=== PATIENT | female | born 1925 | race Caucasian/White ===

== ENCOUNTER 2016-09-11 20:12 | Inpatient (IN) | payer MEDICARE ==
--- NOTE | ~2016-09-11 | IDS ---
Interim Discharge Summary [facility] [address] [place]. [address] NAME: SENTHIL YEE : [birth year] STATUS : ADM IN [facility]#: [id number] AGE: 89 ADM/REG DATE : 09/12/16 MR#: [id number] REPORT SERV DATE: 09/20/16 DICTATED BY: AUGUSTINE FIELD DATE: 09/19/16 REPORT STATUS : Draft TRANSCRIBED BY: MODOsman DATE: 09/19/16 ADMISSION DATE: 09/12/2016 DISCHARGE DATE: Date of transfer to my colleague is 09/20/2016. CONSULTANTS: Consults on this patient so far is: 1. Blender Conveyor Operator, Pelon Hobson has seen this patient. 2. Cardiology consultation by Dr. Rose. DIAGNOSES: So far in this patient include: 1. Acute hypoxic-hypercapnic respiratory failure secondary to multifactorial. 2. Chronic obstructive pulmonary disease. 3. Severe advanced pulmonary hypertension. 4. Healthcare-associated pneumonia (HCAP). The patient has received several days of IV antibiotics and now she is only on Levaquin. Further antibiotics are probably not going to be of any use in this patient as her procalcitonin is normal, white blood cell count is normal, she is afebrile, and her respiratory failure is for other reasons which are multifactorial. 1. Chronic hypoxic-hypercapnic respiratory failure going on for several months, probably secondary to COPD and advanced pulmonary hypertension. 2. Cor pulmonale. 3. The patient's code status is a DNR. 4. The patient is mildly confused and her next of kin who is her sister, Maddy, is deciding whether to transfer the patient to hospice care or not, they are still debating, but Palliative Care is going to be seeing the patient today, 09/19/2016. BRIEF HOSPITAL COURSE: Ms Yee is an 89-year-old white female patient with a history of COPD, severe pulmonary hypertension, and chronic hypoxic respiratory failure on 2 liters of oxygen at home who came in with increasing shortness of breath, cough, and extreme weakness. She was diagnosed with healthcare-associated pneumonia and started on broad-spectrum IV antibiotics appropriately. Her respiratory status, however, did not improve despite her being on antibiotics for several days. Her procalcitonin was normal, WBC count was normal, and she was afebrile, and hence, antibiotics were downgraded per Pulmonary, which I agreed. She is continuing to be on Levaquin now. Her problem however is along with the severe pulmonary hypertension, the patient also has cor pulmonale. She has been given diuretics off and on, but she cannot tolerate a whole lot of diuretics either because of her blood pressure. She is somewhat hypotensive with systolic blood pressure in the 100s to 110s. So, we have been diuresing her off and on as tolerated. She is on oxygen via Vapotherm and then it was changed to non-rebreather mask, but Pulmonary is handling this. She is on high- flow oxygen right now and requiring high amounts of oxygen. She is mildly confused also because her most recent ABG also showed hypercapnia. But other than the cardiac and respiratory problems which are advanced in this patient, her mind seems to be quite sharp even now and she has no other comorbidities. However, it is her strong wish that she is a DNR and definitely does not want to go on life support or does not want to be intubated. Interim Discharge Summary [address] [address] NAME: SENTHIL YEE : [birth year] STATUS : ADM IN PAT#: [id number] AGE: 89 ADM/REG DATE : 09/12/16 MR#: [id number] REPORT SERV DATE: 09/20/16 DICTATED BY: AUGUSTINE FIELD DATE: 09/19/16 REPORT STATUS : Draft TRANSCRIBED BY: MODOsman DATE: 09/19/16 After reviewing all treatment options, both Pulmonary and Cardiology agreed that there are no other treatment options available in this 89-year-old lady. Hence, she was told that she could be kept comfortable and we brought up the issue of hospice with her. She is still debating on that and then upon talking to the next of kin who is her closest, who is her sister, Maddy, family somehow seem to have come to a consensus saying that they do want hospice right now. Again, there has been back and forth debate regarding this, and hence, I have had Palliative Care, Dr. Bhatt, involved and see this patient. Hopefully, the patient would have been seen on 09/19/2016 by Palliative Care, so we can transfer her to [facility]. This should happen within the next one to two days as the patient is going downhill slowly and steadily. She continues to be in hypercapnic respiratory failure and her mental status continues to be foggy/confused. The patient, however, declines any Ativan at this time, and hence, she has not been given any Ativan as of now because it makes her even more confused according to patient. So far, I continue to follow this patient along with Pulmonology and I have not seen Dr. Bhatt's note yet and this should happen tomorrow and the patient should be able to be transferred to hospice care within the next one to two days. RRA/MODL Augustine Field M.D. / [id number] CC: Alysia Brennan M.D.
--- NOTE | ~2016-09-11 | DS ---
Discharge Summary [facility] [address] [facility] [place]. [address] NAME: SENTHIL GRAY : [birth year] STATUS : DIS IN PAT#: [id number] AGE: 89 ADM/REG DATE : 09/12/16 MR#: [id number] REPORT SERV DATE: 09/22/16 DICTATED BY: LAVERN MCCORMICK DATE: 09/21/16 REPORT STATUS : Draft TRANSCRIBED BY: MODL DATE: 09/21/16 ADMISSION DATE: 09/12/2016 DISCHARGE DATE: 09/21/2016 CONSULTANTS: ZAKIA Ugalde with Pulmonary; Dr. Tate Benavides; Dr. Misha Rose, Cardiology. DISCHARGE DIAGNOSES: 1. Cor pulmonale. 2. Severe bronchiectasis. 3. Eoceg-vn-vmwrplv hypercapnic hypoxic respiratory failure. 4. Chronic atrial flutter. 5. Volume overload. 6. Chronic mild thrombocytopenia. 7. Failure to thrive. HISTORY: This patient is followed by stunt man, Dr. Miller and has a history of severe bronchiectasis with previous multiple pneumonias and has a history of cor pulmonale. She wears oxygen 2 L nasal cannula. She has never been a smoker. She presented to the emergency room at [facility] with about a week of cough and greenish-colored sputum and worsening of her baseline shortness of breath as well as dyspnea on exertion, generalized weakness, anorexia. In the emergency room, her O2 saturation was 89% on 3 L, respiratory rate was 24, blood pressure 93/49. She reportedly has lost about 30 pounds in the last few months. She is having difficulty walking. She was referred to our team for inpatient care. Imaging included a chest x-ray showing enlarged cardiac silhouette, pleural thickening, blunting of the right costophrenic angle, some increased interstitial prominence. Followup chest x-ray on the next day showed continued diffuse mixed interstitial and patchy alveolar infiltrates or edema, right upper lobe, a bit worse. Followup chest x-ray on 09/16/2016, slight interval improvement. Chest x-ray on 09/17/2016 revealed unfortunately worsening bilateral asymmetrical pulmonary infiltrates. Echocardiogram review from 12/28/2015 showed left atrial enlargement, 3.9 cm; left ventricular ejection fraction 60%; moderate LVH; moderate right ventricular enlargement with a D shape to the right ventricle. She also had moderate right ventricular systolic dysfunction, pulmonary hypertension of 67. During this hospitalization, she was seen by Pulmonary, Dr. Benavides and his PA Asim Hobson. The patient indicated she did not wish any aggressive measures. She was given increased oxygen. Cardiology, Dr. Rose saw the patient, indicated that they had no inotropic therapy to help at this point in time and since her heart failure was right sided and due to pulmonary disease, there was not much intervention that they could offer. The patient's code status is now DNR. This is per the patient's own wishes as well as through her sister, who has been at bedside. Palliative Care has met with the patient and family, and they have decided on hospice. [facility] has met with the patient and family. The sister is going to move in with the patient and actually the sister's son and his will move in to do the primary care along with hospice at home. They do Discharge Summary [address] [address] NAME: SENTHIL GRAY : [birth year] STATUS : DIS IN PAT#: [id number] AGE: 89 ADM/REG DATE : 09/12/16 MR#: [id number] REPORT SERV DATE: 09/22/16 DICTATED BY: LAVERN MCCORMICK DATE: 09/21/16 REPORT STATUS : Draft TRANSCRIBED BY: JEANIE DATE: 09/21/16 realize that her prognosis is extremely poor. Initially, she was started on broad-spectrum antibiotics, but the ER had given her Rocephin and Zithromax. These were stopped and cefepime was started. The patient was given some IV steroids. Eventually, antibiotics, cefepime and vancomycin, were stopped and Levaquin was given orally. The patient was tapered off IV steroids. The patient's procalcitonins were 0.06 and 0.05. The patient's white blood count on presentation to the hospital was normal. It only went up to 10.7 on 09/16/2016, that is the highest it has been. Urine Legionella and strep antigens were negative. Blood cultures x2 negative. Sputum culture revealed normal naman. DISCHARGE MEDICATIONS: Will include Ecotrin 325 mg daily, Bumex 1 mg b.i.d., BuSpar 5 mg b.i.d., Humibid 1200 mg twice a day OTC, KCl 20 mEq daily, metoprolol tartrate 12.5 mg twice a day if pulse less than 60 or systolic less than 100, Pravachol 40 mg daily at evening, Calan SR 180 mg twice a day if pulse less than 60 or systolic less than 110, Brovana 15 mcg inhaled twice a day, Pulmicort 0.5 mg inhale twice a day, DuoNeb q.4 hours p.r.n. shortness of breath, Tylenol 650 q.4 hours p.r.n. pain, vitamin B12 1000 mcg IM every 30 days. Hospice is setting up for oxygen, hospital bed, and all other equipment. I spent 32 minutes today with the patient and with her sister and with discharge planning. ОЛЕГ/JEANIE Lavern Mccormick M.D. / [id number] CC: Alysia Alvarez M.D. [facility] Alysia Pierre Jr., M.D.
--- NOTE | ~2016-09-11 | CN ---
Consultation Report [facility] [address] [place]. [address] NAME: SENTHIL YEE : [birth year] STATUS : ADM IN [facility]#: [id number] AGE: 89 ADM/REG DATE : 09/12/16 MR#: [id number] REPORT SERV DATE: 09/16/16 DICTATED BY: SHRUTHI ROSE DATE: 09/16/16 REPORT STATUS : Draft TRANSCRIBED BY: MODL DATE: 09/16/16 CARDIOLOGY CONSULTATION NOTE DATE OF CONSULTATION: 09/16/2016 REASON FOR CONSULTATION: Recommendations for management of cor pulmonale and atrial flutter. HISTORY OF PRESENT ILLNESS: Ms. Yee is a pleasant 89-year-old woman with history of advanced COPD and bronchiectasis, which is oxygen-dependent. The patient also has a history of chronic atrial flutter. She is seen by Dr. Eduardo Mclean in Cardiology Clinic. The patient was most recently seen in clinic on 06/14/2016. The patient was admitted to [facility] on 09/12/2016. The patient's chief complaint was progressive shortness of breath and cough of two to three days duration. The patient was found to have evidence of right-sided pneumonia. She has been started on broad-spectrum antibiotic therapy and therapy for COPD exacerbation. The patient's procalcitonin level is normal, however. Today, the patient reports that she feels unusually fatigued. She attributes this to a medication that she was given earlier, though she is not sure what this might have been. However, at this time, she denies any unusual shortness of breath (the patient is on continuous flow nasal cannula oxygen). She denies any unusual chest pain, palpitations, or dizziness. The patient denies orthopnea or paroxysmal nocturnal dyspnea. PAST MEDICAL HISTORY: 1. Advanced COPD and bronchiectasis. 2. Cor pulmonale and group 3 pulmonary hypertension. 3. Failure to thrive. 4. Hypertension. 5. Dyslipidemia. 6. Chronic atrial flutter. PAST SURGICAL HISTORY: 1. The patient has had an abdominal hysterectomy and bilateral salpingo-oophorectomy. 2. Knee surgery, not otherwise specified. 3. 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 FAMILY HISTORY: Negative for early coronary heart disease or sudden cardiac . SOCIAL HISTORY: The patient's only other family member is a 92-year-old sister. The patient has no significant history of tobacco, alcohol, or drug use. ALLERGIES: THE PATIENT HAS A DOCUMENTED ALLERGY TO CODEINE. HOME MEDICATIONS: Consultation Report [address] [place]. [address] NAME: SENTHIL YEE : [birth year] STATUS : ADM IN PAT#: [id number] AGE: 89 ADM/REG DATE : 09/12/16 MR#: [id number] REPORT SERV DATE: 09/16/16 DICTATED BY: SHRUTHI ROSE DATE: 09/16/16 REPORT STATUS : Draft TRANSCRIBED BY: JEANIE DATE: 09/16/16 1. Albuterol nebulizers twice daily as needed. 2. Aspirin 325 mg p.o. daily. 3. Bumex 1 mg p.o. twice daily. 4. BuSpar 5 mg p.o. q.h.s. 5. Vitamin B12 1000 mcg intramuscularly monthly. 6. Boniva 150 mg p.o. monthly. 7. Metoprolol tartrate 12.5 mg p.o. twice daily. 8. Potassium chloride 20 mEq p.o. daily. 9. Pravastatin 40 mg p.o. q.h.s. 10.Tylenol 650 mg p.o. twice daily as needed for pain. 11.Verapamil SR 180 mg p.o. twice daily. REVIEW OF SYSTEMS: A complete 10-system review was performed. This is noncontributory, except for the pertinent positives and negatives noted in the history of present illness above. PHYSICAL EXAMINATION: VITAL SIGNS: Temperature is 97.6 degrees Fahrenheit, blood pressure is 102/70 mmHg, heart rate is currently 86 beats per minute and regular, respirations 18, and oxygen saturation is 92% on nasal cannula oxygen. CONSTITUTIONAL: The patient is a frail elderly white woman, who is fatigued at this time, but is in no acute respiratory distress. The patient is able to speak in full sentences. EYES: PERRL, EOMI, clear conjunctiva. HEAD/MNT: NCAT with moist mucous membranes and grossly normal hard and soft palate. NECK: Supple with no obvious thyromegaly or lymphadenopathy. CARDIOVASCULAR: There is an irregular rhythm with a normal S1 and a widely split second heart sound with a prominent P2 component. There is a faint regurgitant murmur noted at the left sternal border. The jugular venous pressure appears to be at the upper limit of normal at 8 cm. No rubs or gallops are noted. PULMONARY: There is globally decreased air movement with a pronounced expiratory wheeze. Dry rales are noted throughout the lung angel anteriorly. ABDOMINAL: Soft, nontender, nondistended with no hepatosplenomegaly noted. EXTREMITIES: There is no significant clubbing, cyanosis, or edema noted at this time. MUSCULOSKELETAL: Grossly normal strength and range of motion in all extremities. INTEGUMENTARY: Skin appears intact with no bruises, wounds or active lesions noted. NEURO/PSYC: Alert and oriented x3, with no dysarthria, facial droop or lateralizing weakness noted. IMAGIN-lead EKG: The patient's most recent 12-lead EKG from Dr. Mclean's office shows atrial flutter with a controlled ventricular response. There is a right bundle-branch block pattern with criteria for right ventricular hypertrophy. There are secondary ST/T-wave abnormalities. Echocardiogram dated 12/28/2015: Normal left ventricular size and normal left ventricular systolic function with left ventricular ejection fraction estimated at 60%. There is Consultation Report [place] [id number] [facility] [place]. [address] NAME: SENTHIL YEE : [birth year] STATUS : ADM IN [facility]#: [id number] AGE: 89 ADM/REG DATE : 09/12/16 MR#: [id number] REPORT SERV DATE: 09/16/16 DICTATED BY: SHRUTHI ROSE DATE: 09/16/16 REPORT STATUS : Draft TRANSCRIBED BY: JEANIE DATE: 09/16/16 moderate concentric left ventricular hypertrophy. There is moderate right ventricular dilation and decreased right ventricular systolic function. There is a D-shaped septum noted and severe right atrial enlargement. There is severe pulmonary hypertension with right ventricular systolic pressure estimated at 67 mmHg. There is mild mitral regurgitation noted and mhho-go-vuzjfewz tricuspid regurgitation noted. LABORATORY: Blood cultures are negative x2. B-type natriuretic peptide is elevated at 1881. ABG shows a pH of 7.37, pCO2 of 68, pO2 of 65 on 60% FiO2. Cell count show a white blood cell count of 8.9, hemoglobin 11, hematocrit 38, platelets 123. Electrolytes show a sodium of 139, potassium 4.7, chloride is 99, CO2 is 36, BUN 47, creatinine is 1.07, calcium 8.8, glucose 79, magnesium 2.2, phosphorus 3.3. Chest x-ray: Chest x-ray shows mixed interstitial and alveolar infiltrates throughout both lungs. There are stable small bilateral pleural effusions. The cardiomediastinal silhouette is slightly enlarged, but stable. There is extensive calcification of the thoracic aorta. ASSESSMENT AND PLAN: 1. Cor pulmonale: Unfortunately, I am aware of no evidence to support the use of inotropic therapy for the treatment of cor pulmonale. The patient is on an appropriate medication regimen, which includes metoprolol and verapamil. Verapamil may be the most reasonable agent, as theoretically this may help to decrease pulmonary vascular resistance. However, unfortunately, the patient's right-sided heart failure and pulmonary hypertension are secondary to advanced pulmonary disease. The Pulmonology Service is following the patient and is apparently optimized her therapy to the greatest extent possible. The medium term prognosis is poor. Diuretics may be given to treat symptoms of volume overload and edema, though the patient appears to be fairly well compensated at this time with no significant lower extremity edema. 2. Atrial flutter: The patient's heart rate is well controlled at this time. Again, the patient is on a fairly appropriate medication regimen for treatment of her atrial flutter. Chronic oral anticoagulation could be considered, as this may also reduce the likelihood of pulmonary embolism, which would be particularly catastrophic in this patient with severe pulmonary hypertension and advanced pulmonary disease. However, it is apparently felt that the patient is at high fall risk. I will defer to Dr. Mclean on this issue. 3. End-of-life care: The patient apparently has refused hospice care. She is, however, DNR status. The patient apparently is not in favor of any overly aggressive or invasive management. I feel this is quite reasonable under the circumstances. 4. The Cardiology Service will continue to follow the patient for now. Again, I do not feel there is a role for inotropic therapy in this case, though this could be considered on an experimental basis if the Pulmonology Service feels that this would be useful. Consultation Report [place] [id number] [place]. [address] NAME: EVANGELINA YEEJULIANNE Wang : [birth year] STATUS : ADM IN [facility]#: [id number] AGE: 89 ADM/REG DATE : 09/12/16 MR#: [id number] REPORT SERV DATE: 09/16/16 DICTATED BY: SHRUTHI ROSE DATE: 09/16/16 REPORT STATUS : Draft TRANSCRIBED BY: JEANIE DATE: 09/16/16 [facility]/JEANIE Shruthi Rose MD / [id number] CC: Alysia Brennan M.D.
--- NOTE | ~2016-09-11 | CN ---
Consultation Report [facility] [address] [place]. [address] NAME: CATRINA YEE : [birth year] STATUS : ADM IN PAT#: [id number] AGE: 89 ADM/REG DATE : 09/12/16 MR#: [id number] REPORT SERV DATE: 09/14/16 DICTATED BY: ASIM NAGEL DATE: 09/14/16 REPORT STATUS : Draft TRANSCRIBED BY: MODL DATE: 09/14/16 CONSULTATION REPORT DATE OF CONSULTATION: 09/14/2016 CHIEF COMPLAINT: Shortness of breath in a patient with worsening hypoxemia. HISTORY OF PRESENT ILLNESS: Ms Catrina Yee is an 89-year-old white female with a past medical history significant for COPD, bronchiectasis, previous bilateral pleural effusions, MRSA pneumonia, and cor pulmonale who presents to [facility] with complaints of worsening shortness of breath and cough of two to three days' duration. It should be noted that Ms Yee has not been hospitalized this year. She has done fairly well as an outpatient given her advanced age and significant pulmonary comorbidities. Ms Yee has been seen previously in the outpatient clinic by Dr. Barrett. She is on continuous supplemental oxygen at 2 liters. She is on a pulmonary regimen of albuterol. The patient describes herself as a never smoker. She denies symptomatology consistent with obstructive sleep apnea. She has difficulty quantifying her exercise tolerance today as she has recently been ambulating primarily with a walker. Ms Yee did have worsening shortness of breath and associated cough approximately a week ago. These symptoms got progressively worse and culminated in her presentation to [facility]'s Emergency Room. Upon arrival, she was found to be mildly hypotensive. She had an oxygen saturation of 89% on 3 liters. Initial blood work revealed a white blood cell count of 7600. Her BNP was elevated at 765. Procalcitonin was negative. She did have a chest imaging, which suggested a right upper lobe pneumonia. She was started on Rocephin and azithromycin. These antibiotics were later changed to cefepime and vancomycin. She received breathing treatments and steroids with some transient improvement in her pulmonary status. Earlier today, she has had increasing oxygen requirements. This has been to such a degree, she has recently been placed on a non-rebreather. Pulmonary has been consulted for the aforementioned reasons. Currently, Ms Yee is on a non-rebreather with oxygen saturations in the low 90s. She is exhibiting some increased work of breathing. She does have a cough, which is productive in nature. She denies any overt wheezing. She has had a history of bronchiectasis as well as positive in MRSA in her sputum. The patient currently denies any murmurs or angina. She has had an accelerated heart rate and atrial flutter demonstrated on recent echocardiogram. She denies any lower extremity edema. In regard to constitutional symptoms, she currently denies nausea, vomiting, chest pain, abdominal pain, or edema. PAST MEDICAL HISTORY: 1. COPD, on chronic oxygen. Consultation Report [address] [address] NAME: CATRINA YEE : [birth year] STATUS : ADM IN [facility]#: [id number] AGE: 89 ADM/REG DATE : 09/12/16 MR#: [id number] REPORT SERV DATE: 09/14/16 DICTATED BY: ASIM NAGEL DATE: 09/14/16 REPORT STATUS : Draft TRANSCRIBED BY: JEANIE DATE: 09/14/16 2. Bronchiectasis. 3. Severe pulmonary hypertension. 4. Weight loss. 5. Paroxysmal atrial fibrillation. 6. Dyslipidemia. 7. Hypertension. PAST SURGICAL HISTORY: 1. Abdominal hysterectomy with bilateral salpingo-oophorectomy. 2. Knee surgery. 3. History of tumor excision from the chest. FAMILY HISTORY: The patient denies family history of lung disease. SOCIAL HISTORY: The patient states that she does not have any family other than her 92-year- old sister who is actually her [id number]. She previously worked in an office environment. She denies any known exposures to dust, silica, or asbestos. TOBACCO/ALCOHOL: As previously mentioned, she describes herself as a never smoker. She denies any recent illicit drug or alcohol use. MEDICATIONS: 1. Albuterol. 2. Aspirin 325 mg. 3. Bumex 1 mg. 4. BuSpar 5 mg. 5. Boniva 150 mg. 6. Metoprolol 25 mg. 7. Potassium chloride 20 mEq. 8. Pravastatin 40 mg. 9. Verapamil 180 mg. ALLERGIES: THE PATIENT HAS KNOWN ALLERGY TO CODEINE. REVIEW OF SYSTEMS: A complete review of systems was performed with pertinent positives and negatives contained within the body of the HPI. PHYSICAL EXAMINATION: VITAL SIGNS: Blood pressure is 119/67, heart rate is 90, T-max 97.5, respiratory rate is 17, and SpO2 is 92% on a non-rebreather. GENERAL: The patient is a pleasant, well-nourished/well-developed female who is not currently exhibiting any signs of acute distress. Skin: Skin with appropriate texture and turgor. No rashes, lesions, or ulcers. Nails are clear without cyanosis or clubbing. Consultation Report [place] [id number] [facility] [place]. [address] NAME: CATRINA YEE : [birth year] STATUS : ADM IN [facility]#: [id number] AGE: 89 ADM/REG DATE : 09/12/16 MR#: [id number] REPORT SERV DATE: 09/14/16 DICTATED BY: ASIM NAGEL DATE: 09/14/16 REPORT STATUS : Draft TRANSCRIBED BY: JEANIE DATE: 09/14/16 HEENT: Head: Skull is normocephalic/atraumatic. Facies symmetric. No masses or lesions. Eyes: Sclera anicteric, conjunctiva pink without exudates. Extra ocular movements intact. Pupils are equal, round, reactive to light. Ears: Auricles and tragus without pain to palpation. Hearing is grossly intact. Nose: Bilateral nasal patency. Sinuses without tenderness upon palpation. Throat: Dentition. Lips, oral mucosa, tongue, palate, and pharynx pink and moist without lesions. Uvula rises equally on phonation. Tongue midline without deviation. NECK: Neck supple. Trachea midline. No cervical lymphadenopathy appreciated. THORAX/LUNGS: There are coarse rhonchi appreciated through entire lung angel. CARDIOVASCULAR: Regular rate and rhythm. No murmurs, rubs, or gallops. Anterior chest without thrills, heaves, or lifts. ABDOMEN: Soft. Non-distended, non-tender. Active bowel sounds in all four quadrants. No hepatosplenomegaly noted. PERIPHERAL VASCULAR: No edema. No varicosities, stasis changes, open sores, ulcerations, or phlebitis. 2+ pulses in radial and dorsalis pedis. MUSCULOSKELETAL: Full AROM and PROM in all joints. No evidence of erythema, deformity, or crepitus. NEUROLOGIC: CN II - XII grossly intact. Good muscle bulk and tone bilaterally. Strength 5/5 throughout. PSYCHIATRIC: Patient demonstrates good judgment and insight. Pt is A&O x 3. ACCESSORY DATA: Reveals a white blood cell count of 6900, hemoglobin and hematocrit 11.1/37.0. Procalcitonin is negative at 0.05. Creatinine 0.83. Arterial blood gas reveals a pH of 7.32, PaCO2 of 63, PaO2 of 62, and a bicarb of 31.9 on a non-rebreather. BNP reveals a value of 765.9. Imaging reveals worsening pulmonary edema-type pattern, superimposed on chronic changes. Echocardiogram reveals a normal LV size and systolic function, estimated right ventricular systolic pressure of 67 mmHg. IMPRESSION: 1. Acute on chronic hypoxemic-hypercapnic respiratory failure. 2. Cor pulmonale with volume overload. 3. Pulmonary edema. 4. Bilateral pleural effusions, left greater than right. 5. Healthcare-associated pneumonia. 6. Bronchiectasis. 7. Chronic obstructive pulmonary disease. 8. Weight loss. 9. DO NOT RESUSCITATE status. PLAN: 1. At this time, we did have a discussion with the patient who does not wish any aggressive resuscitative measures. We will reflect this within the chart. We will trial her on a BiPAP for both her hypoxemia and hypercapnia. We will transfer her to the next available IMCU bed. 2. In regard to the patient's cor pulmonale, she is at least 5 liters positive at this Consultation Report [address] [address] NAME: CATRINA YEE : [birth year] STATUS : ADM IN [facility]#: [id number] AGE: 89 ADM/REG DATE : 09/12/16 MR#: [id number] REPORT SERV DATE: 09/14/16 DICTATED BY: ASIM NAGEL DATE: 09/14/16 REPORT STATUS : Draft TRANSCRIBED BY: JEANIE DATE: 09/14/16 time. We would recommend placing a Hamilton with aggressive diuretics. We will certainly watch her renal function and close attention to her blood pressure as well. 3. In regard to the patient's HCAP pneumonia and underlying bronchiectasis, we will increase her antibiotics at this time. 4. In regard to the patient's COPD, we will place her on steroids as well as a full armamentarium and nebulized medications. The aforementioned impression and plan has been discussed with Dr. Benavides, who will follow further recommendations. We thank you for this consult and look forward to participating in the care of Ms Catrina Yee. GBS/MODL Asim Nagel PA-C / [id number] CC: Alysia Brennan M.D.
--- NOTE | ~2016-09-11 | HP ---
History And Physical [place] [address] [place]. [address] NAME: SENTHIL YEE : [birth year] STATUS : ADM IN [facility]#: [id number] AGE: 89 ADM/REG DATE : 09/12/16 MR#: [id number] REPORT SERV DATE: 09/12/16 DICTATED BY: JERILYN URIBE DATE: 09/12/16 REPORT STATUS : Draft TRANSCRIBED BY: MODOsman DATE: 09/12/16 DATE OF ADMISSION: 09/12/2016 POINT OF ENTRY: [facility] Emergency Department. PRIMARY AUTOMOTIVE GLASS TECHNICIAN: Elin Barrett M.D. PRIMARY CITY ALDERMAN: Eduardo Mclean M.D. CHIEF COMPLAINT: Shortness of breath, cough, weakness. HISTORY OF PRESENT ILLNESS: Ms Yee is an 89-year-old female with a history of COPD on 2 L of chronic nasal cannula as well as bronchiectasis, severe pulmonary hypertension with resulting right-sided heart failure, who presents to the emergency department today with approximately a week history of cough with white-greenish colored sputum production, worsening shortness of breath, and dyspnea on exertion as well as other chronic complaints such as weakness, weight loss, and lack of appetite. The patient states that for the past week she has had a worsening cough with sputum production as well as worsening shortness of breath and dyspnea on exertion. She denies any fevers, night sweats, chills, chest pain, palpitations, does report some chest congestion as well as wheezing. The patient also reports some more chronic complaints including significant weight loss over the past few months, as well as a lack of appetite and oral intake as well as profound weakness to the point where she is having difficulty walking unassisted at home. The patient states that foods just does not taste like it used to anymore and she readily admits to eating until she becomes full. However, family at bedside reports that the amount that she is eating is very minimal. The patient denies any dysphagia, abdominal pain, nausea, or vomiting as reasons for why she was not eating as much as family would like her to. They state she has approximately 20 to 30 pounds weight loss over the past few months. Her weakness has gradually progressed now to the point where she is having difficulty walking unassisted, it is now worse over the past week with her shortness of breath. Initial evaluation in the emergency department for a chest x-ray concerning for right upper and lower lobe infiltrates, she was mildly hypoxemic on 2 L nasal cannula requiring placement on 4 L. Remainder of her labs were unremarkable except for a BNP level of 766. She was subsequently admitted to the Hospitalist Service for further evaluation and management. REVIEW OF SYSTEMS: Comprehensive review of systems otherwise negative unless listed in history of present illness. PAST MEDICAL HISTORY: 1. COPD on 2 L by nasal cannula. History And Physical [address] [address] NAME: SENTHIL YEE : [birth year] STATUS : ADM IN [facility]#: [id number] AGE: 89 ADM/REG DATE : 09/12/16 MR#: [id number] REPORT SERV DATE: 09/12/16 DICTATED BY: JERILYN URIBE DATE: 09/12/16 REPORT STATUS : Draft TRANSCRIBED BY: JEANIE DATE: 09/12/16 2. Bronchiectasis. 3. Severe pulmonary hypertension with right-sided heart failure. 4. Paroxysmal atrial fibrillation, not on anticoagulation. 5. Anxiety. 6. Hypertension. 7. Hyperlipidemia. PAST SURGICAL HISTORY: 1. Abdominal hysterectomy with bilateral salpingo-oophorectomy. 2. Knee surgery. ALLERGIES: TO CODEINE. HOME MEDICATIONS: 1. Albuterol one nebulization b.i.d. 2. Ecotrin 325 mg daily. 3. Bumex 1 mg b.i.d. 4. BuSpar 5 mg q.h.s. 5. Vitamin B12 1000 mcg monthly. 6. Boniva 150 mg monthly. 7. Lopressor 12.5 mg b.i.d. 8. Potassium chloride 20 mEq daily. 9. Pravastatin 40 mg daily. 10.Tylenol two tablets b.i.d. 11.Verapamil 180 mg b.i.d. SOCIAL HISTORY: Denies any tobacco, alcohol, or illicits. FAMILY MEDICAL HISTORY: Significant for hypertension in her mother, hypertension in her father, siblings with history of hypertension as well as a brain aneurysm. LAB/IMAGIN. White count is 7.6, hemoglobin is 12.8, hematocrit is 40.6, platelet count is 158, and INR 1.1. 2. Sodium is 143, potassium 4.2, chloride 103, carbon dioxide 33, BUN 37, creatinine 0.83, glucose is 98, calcium is 8.9, and magnesium is 2.2. 3. Troponin is 0.04. BNP is 766. 4. Lactic acid is 1.1. 5. Urinalysis: Specific gravity is 1.010, no evidence of any infection. 6. Chest x-ray per my review shows a right upper lobe and right lower lobe infiltrate as well as COPD type changes with hyperinflation and flattened diaphragms, and airspace loss. 7. EKG per my review shows atrial flutter with variable block with heart rates currently in the 70s. No evidence of any acute ischemia or infarctions. 8. ABG; pH is 7.42, pCO2 is 56, PO2 is 60, bicarb is 35, and saturating 91% on 4 L by nasal cannula. History And Physical [address] [address] NAME: SENTHIL YEE : [birth year] STATUS : ADM IN [facility]#: [id number] AGE: 89 ADM/REG DATE : 09/12/16 MR#: [id number] REPORT SERV DATE: 09/12/16 DICTATED BY: JERILYN URIBE DATE: 09/12/16 REPORT STATUS : Draft TRANSCRIBED BY: JEANIE DATE: 09/12/16 PHYSICAL EXAMINATION: VITAL SIGNS: Temperature is 98.1 degrees Fahrenheit, pulse is 74, respirations 24, saturating 89% on 3 L by nasal cannula, and blood pressure 93/49, on recheck it is now 151/59 and saturating 90% on 4 L nasal cannula. GENERAL: The patient is awake and alert, in no acute distress. Resting comfortably. She is a chronically ill-appearing cachectic elderly female. Family is at bedside. HEENT: Atraumatic and normocephalic. Moist mucous membranes. Pupils equal, round, reactive to light and accommodation. Extraocular eye movements intact. No scleral icterus. NECK: Positive jugular venous distention, but with very prominent V-waves. The julio of the V-wave is just above the angle of the sternal notch. No carotid bruits. CARDIAC: Irregularly irregular rate and rhythm with a 2/6 systolic murmur heard best over the left lower sternal border. LUNGS: Left lung is fairly clear, except for decreased breath sounds and prolonged expiratory phase. Right lung zones have diffuse inspiratory rhonchi as well as occasional wheezes. ABDOMEN: Soft, nontender, and nondistended. Good bowel sounds. No rebound, guarding, or rigidity. EXTREMITIES: Warm and well-perfused. No cyanosis, clubbing, or edema. SKIN: Warm and dry. PSYCH: Affect is appropriate. NEURO: Alert and oriented x3. Cranial nerves 2 through 12 are grossly intact. Speech is normal. Gait is not assessed. ASSESSMENT AND PLAN: Ms Yee is an 89-year-old female, who presents with cough, shortness of breath, and found to have evidence of a right-sided pneumonia as well as acute on chronic hypoxic respiratory failure. PROBLEM LIST: 1. Right upper and lower lobe pneumonia. 2. Acute COPD exacerbation. 3. Acute on chronic hypoxic respiratory failure. 4. History of bronchiectasis with positive MRSA sputum culture. 5. Severe pulmonary hypertension with right heart failure. 6. Weakness. 7. Weight loss and anorexia. PLAN: 1. Right-sided pneumonia. We will treat with Rocephin, Zithromax as well as vancomycin given her history of MRSA positive sputum culture. Follow up blood cultures. We will also obtain urinary antigens as well as a repeat sputum culture. 2. Acute COPD exacerbation. We will treat with the above-mentioned antibiotics as well as some steroids, bronchodilators, as well as aggressive pulmonary toilet. 3. Bronchiectasis. Aggressive pulmonary toilet in an effort to clear sputum. 4. Acute on chronic hypoxic respiratory failure. We will attempt to wean as tolerated as the above are addressed. 5. Severe pulmonary hypertension with right-sided heart failure. The patient does have a mildly elevated BNP level of 766. However, on exam she appears euvolemic at this time History And Physical [address] [address] NAME: SENTHIL YEE : [birth year] STATUS : ADM IN [facility]#: [id number] AGE: 89 ADM/REG DATE : 09/12/16 MR#: [id number] REPORT SERV DATE: 09/12/16 DICTATED BY: JERILYN URIBE DATE: 09/12/16 REPORT STATUS : Draft TRANSCRIBED BY: MODL DATE: 09/12/16 and chest x-ray appears to be without any evidence of intravascular volume overload at this time, as such we will continue her home oral Bumex, avoid additional IV fluid hydration at this time. 6. Weakness. We will obtain Physical Therapy consultation as well as checking thyroid function studies. 7. Weight loss and poor appetite. It appears that this appears to be a chronic ongoing issue, we will ask Nutrition to see the patient as well as check hepatic function panel, as well as some iron studies, folate, vitamin B12, and thyroid function studies. I will defer GI evaluation to her primary hydraulic rock drill operator, Dr. Nguyen, as an outpatient. 8. DVT prophylaxis. Lovenox subcu. CODE STATUS: The patient wished to be full code. JCB/MODL Jerilyn Uribe MD / [id number] CC: MD Nivia Renner M.D. Allen E Atchley, M.D. B. Daniel Harnsberger Jr., M.D.
[~2016-09-11 20:12] MED LIST: ACET500CAP PO; ATEN50 PO; AUG875 PO; BUSPAR5 PO; COSAMIN DS1 TAB PO; DUONEB INH; MULTIVITAMI1 PO; PRAVACHOL40 MG PO; REFRESH OPH; V180SR PO
[2016-09-11] MEDS ORDERED: B121000P IM (20:29)
[2016-09-11] MEDS ORDERED: BUSPAR5 PO (20:30)
[2016-09-11] MEDS ORDERED: BUM1 PO (20:30)
[2016-09-11] MEDS ORDERED: CALAN SR180 MG PO (20:30)
[2016-09-11] MEDS ORDERED: ASAEC PO (20:31)
[2016-09-11] MEDS ORDERED: LOP25 PO (20:31)
[2016-09-11] MEDS ORDERED: KLOR-CON M2020 MEQ PO (20:31)
[2016-09-11] MEDS ORDERED: TYLENOL PO (20:32)
[2016-09-11 20:35] LABS: BE (BASE EXCESS) 9.2 MEQ/L (0 +/- 2.5); CARBOXYHEMOGLOBIN 2.1 % (0-3); DEVICE NC; HCO3 (ACTUAL BICARBONATE) 35.3 MEQ/L (23-27); HEMOBLOGIN CONTENT 12.3 G/DL (12-16); INSTRUMENT SERIAL # 8087; METHEMOGLOBIN 0.3 % (0-3); O2 CONTENT 15.4 VOL% (18-24); PCO2 (CO2 TENSION) 56 MMHG (35-45); PO2 (O2 TENSION) 60 MMHG (79-93); SAMPLE Arterial; pH 7.42 (7.37-7.43)
[2016-09-11] MEDS ORDERED: PRAVACHOL40 MG PO (20:39)
[2016-09-11] MEDS ORDERED: BONIVA150 MG PO (20:39)
[2016-09-11] MEDS ORDERED: ALBUTEROL0.083 % INH (20:39)
[2016-09-11 21:24] LABS: BASOPHILS 0.1 %; BASOPHILS ABSOLUTE 0.01 10/3/uL (0.0-0.16); EOSINOPHILS 0.3 %; EOSINOPHILS ABSOLUTE 0.02 10/3/uL (0.0-0.53); HEMATOCRIT 40.6 % (36.0-48.0); HEMOGLOBIN 12.8 g/dL (12.0-16.0); IMMATURE GRANULOCYTES 0.3 %; IMMATURE GRANULOCYTES ABSOLUTE 0.02 10/3/uL (0.0-0.11); LYMPHOCYTES 6.5 %; MEAN CORPUS HGB CONC 31.5 g/dL (32.0-36.0); MEAN CORPUSCULAR HEMOGLOB 33.3 pg (26.0-34.0); MEAN CORPUSCULAR VOLUME 105.7 fL (80-100); MEAN PLATELET VOLUME 10.9 fL (9.2-13.0); MONOCYTES 6.5 %; NEUTROPHILS 86.3 %; NEUTROPHILS ABSOLUTE 6.59 10/3/uL (2.02-8.40); PLATELET COUNT 158 10/3/uL (150-400); RBC DISTRIBUTION WIDTH 15.6 % (12.0-16.0); RED CELL COUNT 3.84 10/6/uL (4.0-5.6); WHITE BLOOD CELLS 7.6 10/3/uL (4.5-10.5)
[2016-09-11 21:26] LABS: MANUAL DIFF NO %
[2016-09-11 21:42] LABS: INTERNATIONAL NORMAL RATI 1.1 UNITS (-); PARTIAL THROMBO TIME 31.5 SEC (22.5-37.2); PROTIME (NOT ORD) 14.5 SEC (12.0-14.5)
[2016-09-11 21:51] LABS: BUN (BLOOD UREA NITROGEN) 37 MG/DL (6-23); CALCIUM, SERUM 8.9 MG/DL (8.5-10.4); CHLORIDE, SERUM 103 MMOL/L (96-112); CO2 (CARBON DIOXIDE) 33 MMOL/L (24-34); CREATININE 0.83 MG/DL (0.55-1.02); GFR AFRICAN AMERICAN 72 ML/MIN (>=60); GFR NON AFRICAN AMERICAN 63 ML/MIN (>=60); GLUCOSE, SERUM 98 MG/DL (60-99); POTASSIUM, SERUM 4.2 MMOL/L (3.5-5.3); SODIUM, SERUM 143 MMOL/L (135-148); TROPONIN I 0.04 NG/ML (<0.05)
[2016-09-11 21:52] LABS: CHEST PAIN PROFILE TAT 0 Hrs 33 Mins
[2016-09-11 22:09] LABS: PROCALCITONIN 0.05 ng/mL (<0.5)
[2016-09-11 22:51] LABS: ASCORBIC ACID (UR NOT ORDER) NEG (NEG); BILIRUBIN, URINE NEGATIVE (NEG); ER URINALYSIS TAT 0 Hrs 12 Mins; KETONE, URINE NEGATIVE (NEG); LEUKOCYTE ESTERASE(NOT OR NEG (NEG); NITRITE (URINE) NEG (NEG); WBC (NOT ORDERED) (RFLEX) 1 (0-5)
[2016-09-12 05:56] LABS: BASOPHILS 0.1 %; BASOPHILS ABSOLUTE 0.01 10/3/uL (0.0-0.16); EOSINOPHILS 0.2 %; EOSINOPHILS ABSOLUTE 0.02 10/3/uL (0.0-0.53); HEMATOCRIT 36.8 % (36.0-48.0); HEMOGLOBIN 11.3 g/dL (12.0-16.0); IMMATURE GRANULOCYTES 0.1 %; IMMATURE GRANULOCYTES ABSOLUTE 0.01 10/3/uL (0.0-0.11); LYMPHOCYTES 6.5 %; LYMPHOCYTES ABSOLUTE 0.53 10/3/uL (0.67-4.30); MANUAL DIFF NO %; MEAN CORPUS HGB CONC 30.7 g/dL (32.0-36.0); MEAN CORPUSCULAR HEMOGLOB 32.4 pg (26.0-34.0); MEAN CORPUSCULAR VOLUME 105.4 fL (80-100); MEAN PLATELET VOLUME 10.6 fL (9.2-13.0); MONOCYTES 3.2 %; MONOCYTES ABSOLUTE 0.26 10/3/uL (0.21-1.20); NEUTROPHILS 89.9 %; PLATELET COUNT 141 10/3/uL (150-400); RBC DISTRIBUTION WIDTH 15.9 % (12.0-16.0); RED CELL COUNT 3.49 10/6/uL (4.0-5.6); WHITE BLOOD CELLS 8.1 10/3/uL (4.5-10.5)
[2016-09-12 06:23] LABS: FREE T4 0.94 NG/DL (0.76-1.46); ULTRASENSITIVE TSH 3.85 MCIU/ML (0.358-3.740)
[2016-09-12 07:05] LABS: ALBUMIN 2.5 G/DL (3.5-5.0); BUN (BLOOD UREA NITROGEN) 34 MG/DL (6-23); CALCIUM, SERUM 8.6 MG/DL (8.5-10.4); CHLORIDE, SERUM 104 MMOL/L (96-112); GFR AFRICAN AMERICAN 76 ML/MIN (>=60); GFR NON AFRICAN AMERICAN 65 ML/MIN (>=60); GLUCOSE, SERUM 93 MG/DL (60-99); PREALBUMIN 10.4 MG/DL (17.0-43.0); SGPT(ALT) 20 U/L (5-65); SODIUM, SERUM 141 MMOL/L (135-148); TOTAL PROTEIN 5.8 G/DL (6.0-8.5)
[2016-09-12 07:07] LABS: ALKALINE PHOSPHATASE 63 U/L (45-117); CO2 (CARBON DIOXIDE) 28 MMOL/L (24-34); DIRECT BILIRUBIN 0.1 MG/DL (0.0-0.4); INDIRECT BILIRUBIN(NOT ORDER) 0.2 MG/DL (0.1-0.9); POTASSIUM, SERUM 4.1 MMOL/L (3.5-5.3); SGOT(AST) 31 U/L (5-40); TOTAL BILIRUBIN 0.3 MG/DL (0-1.2)
[2016-09-12 07:08] LABS: FOLATE 23.2 NG/ML (>5.2)
[2016-09-13 05:57] LABS: BASOPHILS 0.2 %; BASOPHILS ABSOLUTE 0.01 10/3/uL (0.0-0.16); EOSINOPHILS 0 %; HEMATOCRIT 36.2 % (36.0-48.0); IMMATURE GRANULOCYTES 0.3 %; IMMATURE GRANULOCYTES ABSOLUTE 0.02 10/3/uL (0.0-0.11); LYMPHOCYTES 4.1 %; LYMPHOCYTES ABSOLUTE 0.24 10/3/uL (0.67-4.30); MEAN CORPUS HGB CONC 30.4 g/dL (32.0-36.0); MEAN CORPUSCULAR HEMOGLOB 32.4 pg (26.0-34.0); MEAN CORPUSCULAR VOLUME 106.5 fL (80-100); MONOCYTES ABSOLUTE 0.23 10/3/uL (0.21-1.20); NEUTROPHILS 91.4 %; NEUTROPHILS ABSOLUTE 5.32 10/3/uL (2.02-8.40); PLATELET COUNT 140 10/3/uL (150-400); RBC DISTRIBUTION WIDTH 15.9 % (12.0-16.0); WHITE BLOOD CELLS 5.8 10/3/uL (4.5-10.5)
[2016-09-13 05:58] LABS: MANUAL DIFF NO %
[2016-09-13 06:16] LABS: A/G RATIO 0.7 (0.7-1.9); ALBUMIN 2.4 G/DL (3.5-5.0); BUN (BLOOD UREA NITROGEN) 31 MG/DL (6-23); CHLORIDE, SERUM 101 MMOL/L (96-112); CREATININE 0.84 MG/DL (0.55-1.02); GFR AFRICAN AMERICAN 71 ML/MIN (>=60); GFR NON AFRICAN AMERICAN 62 ML/MIN (>=60); GLOBULIN 3.6 G/DL (2.5-4.1); GLUCOSE, SERUM 109 MG/DL (60-99); PHOSPHORUS, SERUM 3.6 MG/DL (2.5-4.5); POTASSIUM, SERUM 4.6 MMOL/L (3.5-5.3); SGOT(AST) 69 U/L (5-40); SGPT(ALT) 36 U/L (5-65); SODIUM, SERUM 140 MMOL/L (135-148); TOTAL BILIRUBIN 0.3 MG/DL (0-1.2)
[2016-09-13 06:18] LABS: ALKALINE PHOSPHATASE 78 U/L (45-117); CO2 (CARBON DIOXIDE) 33 MMOL/L (24-34)
[2016-09-14 05:22] LABS: BASOPHILS 0.1 %; BASOPHILS ABSOLUTE 0.01 10/3/uL (0.0-0.16); EOSINOPHILS 0 %; HEMATOCRIT 37.1 % (36.0-48.0); HEMOGLOBIN 11.1 g/dL (12.0-16.0); IMMATURE GRANULOCYTES 1.2 %; IMMATURE GRANULOCYTES ABSOLUTE 0.08 10/3/uL (0.0-0.11); LYMPHOCYTES 4.4 %; MEAN CORPUS HGB CONC 29.9 g/dL (32.0-36.0); MEAN CORPUSCULAR HEMOGLOB 32.3 pg (26.0-34.0); MEAN CORPUSCULAR VOLUME 107.8 fL (80-100); MEAN PLATELET VOLUME 10.4 fL (9.2-13.0); MONOCYTES 6.2 %; MONOCYTES ABSOLUTE 0.43 10/3/uL (0.21-1.20); NEUTROPHILS 88.1 %; NEUTROPHILS ABSOLUTE 6.07 10/3/uL (2.02-8.40); PLATELET COUNT 131 10/3/uL (150-400); RBC DISTRIBUTION WIDTH 15.9 % (12.0-16.0); RED CELL COUNT 3.44 10/6/uL (4.0-5.6); WHITE BLOOD CELLS 6.9 10/3/uL (4.5-10.5)
[2016-09-14 05:24] LABS: MANUAL DIFF NO %
[2016-09-14 05:36] LABS: CHLORIDE, SERUM 102 MMOL/L (96-112); CO2 (CARBON DIOXIDE) 32 MMOL/L (24-34); CREATININE 0.83 MG/DL (0.55-1.02); GFR AFRICAN AMERICAN 72 ML/MIN (>=60); GFR NON AFRICAN AMERICAN 63 ML/MIN (>=60); GLUCOSE, SERUM 106 MG/DL (60-99); POTASSIUM, SERUM 4.7 MMOL/L (3.5-5.3); SODIUM, SERUM 140 MMOL/L (135-148)
[2016-09-14 05:39] LABS: BUN (BLOOD UREA NITROGEN) 35 MG/DL (6-23)
[2016-09-14 16:06] LABS: ALLENS TEST Pos; BE (BASE EXCESS) 4.4 MEQ/L (0 +/- 2.5); CARBOXYHEMOGLOBIN 1.3 % (0-3); DEVICE NRB; HCO3 (ACTUAL BICARBONATE) 31.9 MEQ/L (23-27); HEMOBLOGIN CONTENT 11.5 G/DL (12-16); INSTRUMENT SERIAL # 8083; METHEMOGLOBIN 0.3 % (0-3); O2 CONTENT 14.5 VOL% (18-24); OPERATOR ID 32214; PCO2 (CO2 TENSION) 63 MMHG (35-45); PO2 (O2 TENSION) 62 MMHG (79-93); SAMPLE Arterial; pH 7.32 (7.37-7.43)
[2016-09-14 18:38] LABS: PHOSPHORUS, SERUM 3.1 MG/DL (2.5-4.5)
[2016-09-14 19:09] LABS: PROCALCITONIN 0.06 ng/mL (<0.5)
[2016-09-15 04:57] LABS: ALLENS TEST Pos; BE (BASE EXCESS) 6.4 MEQ/L (0 +/- 2.5); CARBOXYHEMOGLOBIN 1.3 % (0-3); HCO3 (ACTUAL BICARBONATE) 33.9 MEQ/L (23-27); HEMOBLOGIN CONTENT 11.8 G/DL (12-16); INSTRUMENT SERIAL # 8083; METHEMOGLOBIN 0.3 % (0-3); O2 CONTENT 15.9 VOL% (18-24); OPERATOR ID 32193; PCO2 (CO2 TENSION) 64 MMHG (35-45); PO2 (O2 TENSION) 87 MMHG (79-93); SAMPLE Arterial; pH 7.34 (7.37-7.43)
[2016-09-15 09:13] LABS: BASOPHILS 0.1 %; BASOPHILS ABSOLUTE 0.01 10/3/uL (0.0-0.16); EOSINOPHILS 0 %; HEMATOCRIT 37.4 % (36.0-48.0); HEMOGLOBIN 11.2 g/dL (12.0-16.0); IMMATURE GRANULOCYTES 0.6 %; IMMATURE GRANULOCYTES ABSOLUTE 0.06 10/3/uL (0.0-0.11); LYMPHOCYTES 4.5 %; LYMPHOCYTES ABSOLUTE 0.48 10/3/uL (0.67-4.30); MEAN CORPUS HGB CONC 29.9 g/dL (32.0-36.0); MEAN CORPUSCULAR HEMOGLOB 31.6 pg (26.0-34.0); MEAN CORPUSCULAR VOLUME 105.6 fL (80-100); MEAN PLATELET VOLUME 10.8 fL (9.2-13.0); MONOCYTES 6.1 %; MONOCYTES ABSOLUTE 0.65 10/3/uL (0.21-1.20); NEUTROPHILS 88.7 %; NEUTROPHILS ABSOLUTE 9.49 10/3/uL (2.02-8.40); PLATELET COUNT 135 10/3/uL (150-400); RBC DISTRIBUTION WIDTH 15.5 % (12.0-16.0); RED CELL COUNT 3.54 10/6/uL (4.0-5.6)
[2016-09-15 09:17] LABS: MANUAL DIFF NO %; WHITE BLOOD CELLS 10.7 10/3/uL (4.5-10.5)
[2016-09-15 09:25] LABS: BUN (BLOOD UREA NITROGEN) 40 MG/DL (6-23); CALCIUM, SERUM 8.3 MG/DL (8.5-10.4); CHLORIDE, SERUM 97 MMOL/L (96-112); CO2 (CARBON DIOXIDE) 37 MMOL/L (24-34); GFR AFRICAN AMERICAN 66 ML/MIN (>=60); GFR NON AFRICAN AMERICAN 57 ML/MIN (>=60); GLUCOSE, SERUM 99 MG/DL (60-99); PHOSPHORUS, SERUM 2.5 MG/DL (2.5-4.5); POTASSIUM, SERUM 4.7 MMOL/L (3.5-5.3); SODIUM, SERUM 139 MMOL/L (135-148)
[2016-09-16 04:03] LABS: BE (BASE EXCESS) 9.3 MEQ/L (0 +/- 2.5); CARBOXYHEMOGLOBIN 1.1 % (0-3); HCO3 (ACTUAL BICARBONATE) 38.1 MEQ/L (23-27); HEMOBLOGIN CONTENT 12.2 G/DL (12-16); INSTRUMENT SERIAL # 8083; METHEMOGLOBIN 0.3 % (0-3); O2 CONTENT 17.1 VOL% (18-24); PCO2 (CO2 TENSION) 76 MMHG (35-45); PO2 (O2 TENSION) 157 MMHG (79-93); SAMPLE Arterial; pH 7.32 (7.37-7.43)
[2016-09-16 06:22] LABS: BASOPHILS 0.1 %; BASOPHILS ABSOLUTE 0.01 10/3/uL (0.0-0.16); EOSINOPHILS 0 %; HEMOGLOBIN 11.4 g/dL (12.0-16.0); IMMATURE GRANULOCYTES 0.3 %; IMMATURE GRANULOCYTES ABSOLUTE 0.03 10/3/uL (0.0-0.11); LYMPHOCYTES 7.1 %; LYMPHOCYTES ABSOLUTE 0.63 10/3/uL (0.67-4.30); MEAN CORPUSCULAR HEMOGLOB 32.5 pg (26.0-34.0); MEAN CORPUSCULAR VOLUME 108.3 fL (80-100); MEAN PLATELET VOLUME 11.2 fL (9.2-13.0); MONOCYTES 9.3 %; MONOCYTES ABSOLUTE 0.83 10/3/uL (0.21-1.20); NEUTROPHILS 83.2 %; NEUTROPHILS ABSOLUTE 7.38 10/3/uL (2.02-8.40); PLATELET COUNT 123 10/3/uL (150-400); RBC DISTRIBUTION WIDTH 15.7 % (12.0-16.0); RED CELL COUNT 3.51 10/6/uL (4.0-5.6); WHITE BLOOD CELLS 8.9 10/3/uL (4.5-10.5)
[2016-09-16 06:23] LABS: MANUAL DIFF NO %
[2016-09-16 06:39] LABS: BUN (BLOOD UREA NITROGEN) 47 MG/DL (6-23); CALCIUM, SERUM 8.8 MG/DL (8.5-10.4); CHLORIDE, SERUM 99 MMOL/L (96-112); CO2 (CARBON DIOXIDE) 36 MMOL/L (24-34); CREATININE 1.07 MG/DL (0.55-1.02); GFR AFRICAN AMERICAN 53 ML/MIN (>=60); GFR NON AFRICAN AMERICAN 46 ML/MIN (>=60); GLUCOSE, SERUM 79 MG/DL (60-99); PHOSPHORUS, SERUM 3.3 MG/DL (2.5-4.5); POTASSIUM, SERUM 4.7 MMOL/L (3.5-5.3); SODIUM, SERUM 139 MMOL/L (135-148)
[2016-09-16 06:48] LABS: BE (BASE EXCESS) 10.7 MEQ/L (0 +/- 2.5); CARBOXYHEMOGLOBIN 0.9 % (0-3); HCO3 (ACTUAL BICARBONATE) 38.2 MEQ/L (23-27); HEMOBLOGIN CONTENT 11.6 G/DL (12-16); INSTRUMENT SERIAL # 8083; METHEMOGLOBIN 0.3 % (0-3); O2 CONTENT 15.1 VOL% (18-24); PCO2 (CO2 TENSION) 68 MMHG (35-45); PO2 (O2 TENSION) 65 MMHG (79-93); SAMPLE Arterial; pH 7.37 (7.37-7.43)
[2016-09-17 03:49] LABS: BE (BASE EXCESS) 11.8 MEQ/L (0 +/- 2.5); CARBOXYHEMOGLOBIN 1.2 % (0-3); HCO3 (ACTUAL BICARBONATE) 39.3 MEQ/L (23-27); INSTRUMENT SERIAL # 8083; METHEMOGLOBIN 0.3 % (0-3); O2 CONTENT 16.3 VOL% (18-24); OPERATOR ID 30014; PCO2 (CO2 TENSION) 65 MMHG (35-45); PO2 (O2 TENSION) 59 MMHG (79-93); SAMPLE Arterial
[2016-09-17 03:50] LABS: ALLENS TEST Pos
[2016-09-17 07:04] LABS: BASOPHILS 0.5 %; BASOPHILS ABSOLUTE 0.05 10/3/uL (0.0-0.16); EOSINOPHILS 0 %; HEMOGLOBIN 13.3 g/dL (12.0-16.0); IMMATURE GRANULOCYTES 0.4 %; IMMATURE GRANULOCYTES ABSOLUTE 0.04 10/3/uL (0.0-0.11); LYMPHOCYTES 10.6 %; LYMPHOCYTES ABSOLUTE 1.12 10/3/uL (0.67-4.30); MEAN CORPUS HGB CONC 31.3 g/dL (32.0-36.0); MEAN CORPUSCULAR HEMOGLOB 32.8 pg (26.0-34.0); MONOCYTES ABSOLUTE 1.05 10/3/uL (0.21-1.20); NEUTROPHILS 78.5 %; NEUTROPHILS ABSOLUTE 8.26 10/3/uL (2.02-8.40); NUCLEATED RED BLOOD CELLS 0.8 /100WBC (0-0); PLATELET COUNT 131 10/3/uL (150-400); RBC DISTRIBUTION WIDTH 15.4 % (12.0-16.0); RED CELL COUNT 4.05 10/6/uL (4.0-5.6); WHITE BLOOD CELLS 10.5 10/3/uL (4.5-10.5)
[2016-09-17 07:06] LABS: HEMATOCRIT 42.5 % (36.0-48.0); MANUAL DIFF NO %; MEAN CORPUSCULAR VOLUME 104.9 fL (80-100)
[2016-09-17 07:11] LABS: BUN (BLOOD UREA NITROGEN) 46 MG/DL (6-23); CALCIUM, SERUM 9.2 MG/DL (8.5-10.4); CHLORIDE, SERUM 94 MMOL/L (96-112); CO2 (CARBON DIOXIDE) 38 MMOL/L (24-34); CREATININE 1.01 MG/DL (0.55-1.02); GFR AFRICAN AMERICAN 57 ML/MIN (>=60); GFR NON AFRICAN AMERICAN 49 ML/MIN (>=60); GLUCOSE, SERUM 84 MG/DL (60-99); POTASSIUM, SERUM 4.8 MMOL/L (3.5-5.3); SODIUM, SERUM 140 MMOL/L (135-148)
== END 2016-09-21 16:17 | disposition hospice, home (50) | DRG 189 ==
LOC: ER 20:12 → 1SO 09-12 00:24
PROVIDERS: Hospitalist; Internal Medicine; Nurse Practitioner Acute Care; Physician Assistant Medical
DX: J96.21 Acute and chronic respiratory failure with hypoxia (principal); E43 Unspecified severe protein-calorie malnutrition; J18.9 Pneumonia, unspecified organism; J90 Pleural effusion, not elsewhere classified; I50.32 Chronic diastolic (congestive) heart failure; J44.0 Chronic obstructive pulmonary disease with (acute) lower respiratory infection; J44.1 Chronic obstructive pulmonary disease with (acute) exacerbation; I48.92 Unspecified atrial flutter; Z68.1 Body mass index [BMI] 19.9 or less, adult; I11.0 Hypertensive heart disease with heart failure; D69.6 Thrombocytopenia, unspecified; I27.81 Cor pulmonale (chronic); J96.22 Acute and chronic respiratory failure with hypercapnia; I48.0 Paroxysmal atrial fibrillation; Z66 Do not resuscitate; Z51.5 Encounter for palliative care; I08.1 Rheumatic disorders of both mitral and tricuspid valves; E78.5 Hyperlipidemia, unspecified; I45.10 Unspecified right bundle-branch block; F41.9 Anxiety disorder, unspecified; Y95 Nosocomial condition; Z99.81 Dependence on supplemental oxygen; Z79.82 Long term (current) use of aspirin; Z79.899 Other long term (current) drug therapy; Z88.5 Allergy status to narcotic agent; Z86.14 Personal history of Methicillin resistant Staphylococcus aureus infection; Z87.01 Personal history of pneumonia (recurrent)
CPT/HCPCS: 36600; 71010; 80048; 80053; 80076; 81001; 82607; 82728; 82746; 82805; 83540; 83550; 83605; 83735; 83880; 84100; 84134; 84145; 84439; 84443; 84484; 85025; 85610; 85730; 87040; 87070; 87205; 87449; 93005; 94640; 94660; 94667; 94668; 97110-GP; 97116-GP; 97162-GP; 97530-GP; 99285; A9270-GY; G8978-CK-GP; G8979-CJ-GP; J0456; J0692; J2920; J2930; J3370